=== PATIENT | female | born 1990 | race Caucasian/White ===

== ENCOUNTER 2020-04-22 13:04 | Emergency (ER) | payer OTHER, MEDICAID, SELFPAY ==
[2020-04-22 13:17] VITALS: BP 141/83; PULSE 106; RESP 20; TEMP 36.3; O2SAT 98
--- NOTE | 2020-04-22 13:20 | ED.FEMALEGU ---
HPI - Female Genitourinary General Chief complaint: Urogenital-Female Stated complaint: lower back pain/frequent urination Source: patient and RN notes reviewed Mode of arrival: ambulatory Limitations: no limitations History of Present Illness HPI Narrative: This is a 30 years old female presents to the office for an evaluation of possible UTI. Onset about couple days ago with right side flank pain. Associated with urinary frequency, urinary pain and urgency. She is 32 weeks . Denies history of preeclampsia. He was told by her GROUT WORKER in December that her blood pressure was elevated, put her on bedrest. She supposed to see him on Thursday for follow-up. Dr. Recio at [facility] is her GROUT WORKER. She did not attempt to call her GROUT WORKER. Related Data Home Medications Medication Instructions Recorded Confirmed vit-iron fum-folic ac 1 tablet PO DAILY 04/22/20 04/22/20 [ Vitamin] Allergies Allergy/AdvReac Type Severity Reaction Status Date / Time No Known Allergies Allergy Verified 04/22/20 13:24 Review of Systems Review of Systems: Narrative: CONSTITUTIONAL: Denies fever or feeling ill ENT: Denies congestion CARDIOVASCULAR: Denies chest pain. Reports lower leg swelling RESPIRATORY: Denies dyspnea, wheezing GASTROINTESTINAL: Denies abdominal pain, nausea, vomiting GENITOURINARY: Denies vaginal discharge SKIN: Denies rash/lesions MUSCULOSKELETAL: Denies acute back pain NEUROLOGIC: Denies lightheaded/dizziness All other systems reviewed are negative, except as documented in HPI. PMFSH Comments At time of signature, I agree with nursing past medical, surgical, social and family history. There is no relevant family history pertinent to the presenting complaint. Exam Narrative: Exam Narrative: GENERAL: This is a well-nourished, well-developed patient, in no apparent distress. CARDIOVASCULAR: Regular rate and rhythm without murmurs, gallops, or rubs. RESPIRATORY: Clear to auscultation. Breath sounds equal bilaterally. No wheezes, rales, or rhonchi. GASTROINTESTINAL: Abdomen soft, non-tender, nondistended. Bowel sounds are active. No hepato-splenomegaly, or palpable masses. No guarding. NO CVA tenderness. SKIN: warm, intact with no suspicious lesions or rash, good texture and turgor. NEURO: awake, alert, and oriented to person, place and time. There were no obvious focal neurologic abnormalities. Steady gait. EXTREMITIES: Pitting edema noted in the bilateral ankles. Eva Coma Scale Eye Opening: Spontaneous 4 Faisal Coma Scale Motor: Obeys Commands 6 Faisal Coma Scale Verbal: Oriented 5 Course Consultations Consultation #1: @[id number]:I called patient's OBGYN exchange line at [phone] Recio consult. Awaiting call back. @[id number]: Dr Recio called; recommend sending patient to [facility] for further evaluation. @[id number]: [facility]: 04/22/20 Vital Signs Vital signs: Vital Signs Temperature 97.3 F L 04/22/20 13:17 Pulse Rate 106 H 04/22/20 13:17 Respiratory Rate 20 04/22/20 13:17 Blood Pressure 141/83 H 04/22/20 13:17 Pulse Oximetry 98 04/22/20 13:17 Temperature 97.3 F L 04/22/20 13:17 Pulse Rate 106 H 04/22/20 13:17 Respiratory Rate 20 04/22/20 13:17 Blood Pressure 141/83 H 04/22/20 13:17 Pulse Oximetry 98 04/22/20 13:17 Transfer Transfered to: [facility] ([place] Transportation: Other (private care) Transfer rationale: Diagnostic test Accepting physician: Dr. French Transfer comments: Higher level care. MDM - Female Genitourinary MDM Narrative Medical decision making narrative: . Differential Diagnosis Differential diagnosis: Likely urinary tract infection, bacterial vaginosis, trichomoniasis, cervicitis, vaginitis, cystitis and other (preeclamspia) Lab Data Labs: Urine Glucose Negative Reference Range: Negative Urine Bilirubin 1+ Re
--- NOTE | 2020-04-22 15:51 | PCDIET ---
1440 noted pt called in, spoke to provider, and stated she is at and they are not aware of her arrival. she was instructed to call her obgyn for clarification.
--- NOTE | 2020-04-22 15:55 | PCDIET ---
8800 nurse spoke with pt who states she will be seen at [facility] as her obgyn requests.
== END 2020-04-22 14:02 | disposition short-term general hospital (02) ==
PROVIDERS: Emergency Provider Nurse Practitioner; PCP Nurse Practitioner Family
DX: O99.89 Other specified diseases and conditions complicating pregnancy, childbirth and the puerperium (principal); R03.0 Elevated blood-pressure reading, without diagnosis of hypertension; R82.90 Unspecified abnormal findings in urine; Z3A.32 32 weeks gestation of pregnancy
CPT/HCPCS: 81003; 87086; 87088; 99213; G0463